=== PATIENT | male | born 1995 | race African-American/Black ===

== ENCOUNTER 2021-08-03 17:08 | Emergency (ER) | payer OTHER, SELFPAY ==
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
[2021-08-03 17:14] VITALS: BP 148/86; PULSE 72; RESP 21; TEMP 35.8; O2SAT 99
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
[2021-08-03 19:15] VITALS: BP 139/79; PULSE 69; RESP 18; O2SAT 99
[2021-08-03] MEDS: IBUPROFEN 400 MG TABLET 800 MG PO (19:20)
[2021-08-03] MEDS: CLINDAMYCIN HCL 150 MG CAP 300 MG PO (19:20)
== END 2021-08-03 19:30 | disposition home or self-care (01) ==
PROVIDERS: Emergency Provider Family Medicine
DX: S40.012A Contusion of left shoulder, initial encounter (principal); S61.411A Laceration without foreign body of right hand, initial encounter; E11.9 Type 2 diabetes mellitus without complications; Z91.013 Allergy to seafood; V89.2XXA Person injured in unspecified motor-vehicle accident, traffic, initial encounter
CPT/HCPCS: 73030; 73130; 99284; A9270